=== PATIENT | female | born 1970 | race Caucasian/White ===

== ENCOUNTER 2018-03-18 17:35 | Emergency (ER) | payer MEDICAID ==
[~2018-03-18] VITALS: Ht 157.5 cm; Wt 79.0 kg
[2018-03-18] MEDS ORDERED: BACITRACIN ZINC OINT UDPKT TOP ONE (23:30)
[2018-03-18] MEDS ORDERED: TETANUS, DIPHTHERIA, PERTUSSIS VAC/PF 0.5ML (>7YR OLD) IM ONE (23:30)
[2018-03-18] MEDS ORDERED: LIDOCAINE HCL/PF 1% 10 MG/ML 5ML VIAL IJ ONE (23:30)
[2018-03-18] MEDS ORDERED: ACETAMINOPHEN 325MG TABLET PO ONE (23:30)
[2018-03-19 03:03] VITALS: BP 104/65
== END 2018-03-19 03:39 | disposition home or self-care (01) ==
LOC: ER 17:35
DX: S11.81XA Laceration without foreign body of other specified part of neck, initial encounter (principal); W01.198A Fall on same level from slipping, tripping and stumbling with subsequent striking against other object, initial encounter; Y93.89 Activity, other specified; Y92.89 Other specified places as the place of occurrence of the external cause; Z23 Encounter for immunization
CPT/HCPCS: 12011; 70450; 70486; 90471; 90715; 99284; J3490